=== PATIENT | male | born 1960 | race Caucasian/White ===

== ENCOUNTER 2019-01-06 05:33 | Inpatient (IN) ==
[2018-12-27 10:32] LABS: Basophils % 0.5 % (0.0-0.8); Eosinophils # 0.1 10*3/uL (0.0-0.87); Eosinophils % 1.2 % (0.00-10.9); Hematocrit 45.7 VOL% (42.0-52.0); Hemoglobin 14.2 GM/DL (14.0-18.0); Immature Granulocytes % 0.4 %; Immature Granulocytes Absolute 0.03 #; Lymphocytes # 1.5 10*3/uL (1.4-4.0); Lymphocytes % 17.9 % (21.2-54.2); Mean Corpuscular HGB Conc 31.1 GM/DL (32-36); Mean Corpuscular Volume 86.1 FL (87-102); Mean Platelet Volume 10.1 FL (9.6-12.0); Monocytes % 7.9 % (1.7-12.7); Neutrophils % 72.1 % (38.7-73.9); Platelet Count 228 T/CUMM (130-400); Red Blood Count 5.31 MC/CUMM (3.8-5.5); Red Cell Distribution Width 15.3 % (9.3-17.3); White Blood Count 8.3 T/CUMM (4-12)
[2018-12-27 10:51] LABS: Calcium 9.1 MG/DL (8.5-10.1); Osmolality,Calculated 277.7 MOS/KG (273-304)
[2019-01-06] MEDS ORDERED: CLINDAMYCIN INJ 900 MG in PREMIX 1 EACH IV ONE (06:00)
[2019-01-06] MEDS ORDERED: CLINDAMYCIN INJ 50 ML IV ONE (06:27)
[2019-01-06] MEDS ORDERED: LACTATED RINGERS 1,000 ML IV SCH (06:30)
[2019-01-06] MEDS ORDERED: ALBUTEROL/IPRATROPIUM 3 ML NEB RESP TX ONE (06:44)
[2019-01-06] MEDS ORDERED: BUPIVACAINE 0.5% 50 ML VIAL ONE (09:06)
[2019-01-06] MEDS ORDERED: ACETAMINOPHEN 325 MG TABLET PO PRN (09:08)
[2019-01-06] MEDS ORDERED: EPINEPHrine 1 MG/ML VIAL ONE (09:08)
[2019-01-06] MEDS ORDERED: DEXAMETHASONE 4 MG/1 ML VIAL ONE ×2 (09:08→09:17)
[2019-01-06] MEDS ORDERED: ALBUTEROL/IPRATROPIUM 3 ML NEB RESP TX PRN (09:08)
[2019-01-06] MEDS ORDERED: ONDANSETRON 4 MG/2 ML VIAL IV PRN ×2 (09:08→09:24)
[2019-01-06] MEDS ORDERED: PROMETHAZINE 25 MG/1 ML VIAL IM PRN (09:08)
[2019-01-06 09:23] LABS: Apearance,Urine CLEAR (Clear); Bilirubin,Urine Negative (Negative); Blood, Urine Negative (Negative); Glucose,Urine (UA) Negative (Negative); Ketones,Urine Negative (Negative); Mucus,Urine Few /LPF (Occasional); Nitrite,Urine Negative (Negative); Protein,Urine Negative; RBC,Urine <1 /HPF (0-4); Squamous Epithelial Cell,Urine Occasional /HPF (0-10); Urine Color Yellow (Yellow); Urine Specific Gravity 1.024 (1.001-1.035); Urine Urobilinogen < 2.0 EU/DL (0.2-1.0); WBC,Urine <1 /HPF (0-6)
[2019-01-06] MEDS ORDERED: PROPOFOL 200 MG/20 ML VIAL IV ONE (09:23)
[2019-01-06] MEDS ORDERED: SEVOFLURANE 1 UNIT/15 MINUTE INH ONE (09:23)
[2019-01-06] MEDS ORDERED: MIDAZOLAM 2 MG/2 ML VIAL ONE (09:23)
[2019-01-06] MEDS ORDERED: GLYCOPYRROLATE 0.4 MG/2 ML VIAL ONE (09:24)
[2019-01-06] MEDS ORDERED: fentaNYL 100 MCG/2 ML VIAL ONE (09:24)
[2019-01-06] MEDS ORDERED: SUCCINYLCHOLINE 200 MG/10 ML VIAL ONE (09:24)
[2019-01-06] MEDS ORDERED: PHENYLEPHRINE 1 MG/10 ML SYRINGE IV ONE (09:24)
[2019-01-06] MEDS ORDERED: ROCURONIUM 100 MG/10 ML VIAL IV ONE (09:25)
[2019-01-06] MEDS ORDERED: NEOSTIGMINE 10 MG/10 ML VIAL ONE (09:25)
[2019-01-06] MEDS: HYDROmorphone 2 MG/1 ML VIAL IV PRN ×4 (09:28→10:00)
[2019-01-06] MEDS: LACTATED RINGERS 1,000 ML IV SCH ×2 (11:22→21:12)
[2019-01-06] MEDS: METOCLOPRAMIDE 10 MG/2 ML VIAL IV SCH ×2 (11:23→17:59)
[2019-01-06] MEDS: FAMOTIDINE 20 MG/2 ML VIAL IV SCH ×2 (13:38→21:07)
[2019-01-06] MEDS: CLINDAMYCIN INJ 900 MG in PREMIX 1 EACH IV SCH ×3 (15:28→22:23)
[2019-01-07] MEDS: METOCLOPRAMIDE 10 MG/2 ML VIAL IV SCH ×4 (00:47→18:42)
[2019-01-07] MEDS ORDERED: ENOXAPARIN 40 MG/0.4 ML SYRINGE ONE (01:38)
[2019-01-07] MEDS: KETOROLAC 15 MG/1 ML VIAL IV PRN (02:04)
[2019-01-07] MEDS: ENOXAPARIN 40 MG/0.4 ML SYRINGE SUBCUT SCH ×2 (02:06→02:11)
[2019-01-07] MEDS: HYDROmorphone 2 MG/1 ML VIAL IV PRN ×4 (03:55→21:08)
[2019-01-07] MEDS: LACTATED RINGERS 1,000 ML IV SCH ×2 (03:56→13:19)
[2019-01-07 04:46] LABS: Basophils % 0.1 % (0.0-0.8); Eosinophils % 0.1 % (0.00-10.9); Hematocrit 33.7 VOL% (42.0-52.0); Immature Granulocytes % 0.4 %; Immature Granulocytes Absolute 0.04 #; Lymphocytes # 0.9 10*3/uL (1.4-4.0); Lymphocytes % 10.3 % (21.2-54.2); Mean Corpuscular HGB Conc 32.6 GM/DL (32-36); Mean Platelet Volume 10.6 FL (9.6-12.0); Monocytes % 9.1 % (1.7-12.7); Platelet Count 204 T/CUMM (130-400); Red Blood Count 4.01 MC/CUMM (3.8-5.5); Red Cell Distribution Width 14.1 % (9.3-17.3); White Blood Count 9.1 T/CUMM (4-12)
[2019-01-07 05:02] LABS: Albumin 2.4 G/DL (3.4-5.0); Bilirubin,Total 0.7 MG/DL (0.2-1.0); Calcium 7.7 MG/DL (8.5-10.1); Osmolality,Calculated 275.8 MOS/KG (273-304); Total Protein 5.5 G/DL (6.4-8.3)
[2019-01-07] MEDS: FAMOTIDINE 20 MG/2 ML VIAL IV SCH ×2 (10:30→21:05)
[2019-01-08] MEDS: METOCLOPRAMIDE 10 MG/2 ML VIAL IV SCH ×3 (00:05→12:59)
[2019-01-08] MEDS: HYDROmorphone 2 MG/1 ML VIAL IV PRN ×4 (00:07→12:55)
[2019-01-08] MEDS: KETOROLAC 15 MG/1 ML VIAL IV PRN ×2 (02:22→08:25)
[2019-01-08] MEDS: ENOXAPARIN 40 MG/0.4 ML SYRINGE SUBCUT SCH (03:18)
[2019-01-08] MEDS: LACTATED RINGERS 1,000 ML IV SCH (05:45)
[2019-01-08] MEDS: FAMOTIDINE 20 MG/2 ML VIAL IV SCH (08:28)
[2019-01-08 11:50] VITALS: BP 102/61
== END 2019-01-08 15:45 | disposition home or self-care (01) | DRG 328 ==
LOC: N.SDSINP 05:33 → EDSTATUS 07:30 → N.3E 10:52
PROVIDERS: ADMIT Surgery; ATTEND Surgery